=== PATIENT | female | born 1945 | race Caucasian/White ===

== ENCOUNTER → 2017-02-05 | Outpatient (CLI) | payer MEDICARE ==
[~2017-02-05] MED LIST: AMBIEN10 MG PO; ATIVAN0.5 M1 PO; BACTRIM DS TABL1 TA1 PO; CITALOPRAM HBR40 MG PO; COMBIVENT U/D3 M2 INH; DOCUSATE SODIU100 MG PO; DULOXETINE HCL60 M1 PO; DULOXETINE HCL60 MG PO; FLORASTORKIDS250 MG PO; GABAPENTIN300 M2 PO; GLUCOPHAGE500 M1 PO; HUMIBID-LA600 MG PO; HYDROCODON-ACE1 EAC7 PO; HYDROCODONE-A1 UDTA2 PO; HYDROXYZINE HCL25 M1 PO; KLONOPIN0.5 MG PO; LASIX20 MG PO; LEVAQUIN750 MG PO; LISINOPRIL-HCTZ1 T14 PO; MEROPENEM500 M1 IV; MIRALAX17 GM PO; NEURONTIN300 MG PO; PERFOROMIS20 MCG/2 M INH; PROTONIX PO; PULMICORT0.5 MG/21 INH; QUETIAPINE FUMA25 MG; QUETIAPINE FUMA25 MG PO; TOPROL XL PO; TYLENOL #4 PO; VANCOMYCIN1.5 GM/251 IV; VASCULERA630 MG PO; XARELTO10 MG PO; ZESTRIL10 M1 PO; [UNRECOGNIZED DRUG - OTHER] IU
--- NOTE | ~2017-02-05 | CT55 ---
[facility] A Service of [facility] RADIOLOGY TEXT RESULTS PATIENT: SERGIO VILLARREAL LOCATION: [facility] : 41 UNIT #: [id number] AGE: [address]: Davy Rooney MD SEX: F ORDER DR: [id number] [facility] [address] [place], [place] [address] [id number] O MR#: [id number] Acc #: [id number] NAME: SERGIO VILLARREAL : 1945 SEX: F STUDY DATE/TIME: 02/05/2017 10:25 UNIT: [facility] ROOM: STUDY DESCRIPTION: CT Chest W Con Attending Physician: Davy Rooney M.D. Referring Physician: Davy Rooney M.D. Ordering Physician: Davy Rooney M.D. Primary Care Physician: Will Sousa D.O. MEDICAL IMAGING REPORT This report is preliminary unless electronic signature is present EXAM CT chest with contrast, 02/05/2017, 10:25 hours HISTORY 71-year-old diagnosed with lung carcinoma, status post left lung surgery September 26, 2016 with interval chemo and radiation therapy. Observation for suspected malignant neoplasm. Restaging. COMPARISON CT chest 10/19/[address] images were obtained from the lung apices through the adrenal glands. Sagittal and coronal reconstructions were performed. Contrast was Isovue-370, 70 mL IV. Total exam DLP is 8619 mGy/cm. This CT exam was performed with one or more of the following radiation dose reduction techniques: automatic exposure control, adjustment of mA and/or kV according to patient size, and iterative reconstruction. FINDINGS Images through the thoracic inlet demonstrate no thyroid mass or supraclavicular adenopathy. Images through the chest demonstrate normal aorta, pulmonary arteries, cardiac chambers, pericardium and esophagus. There is no definite pathologic mediastinal, hilar or axillary adenopathy. The patient has underlying emphysematous change. There is a spiculated residual mass density in the left upper lung irregular marginated somewhat difficult to measure measuring up to 3.4 x 2.3 cm. I believe this is present and partially obscured by pleural fluid previously. Previous STS. [facility] A Service of [facility] RADIOLOGY TEXT RESULTS PATIENT: SERGIO VILLARREAL LOCATION: [facility] : 41 UNIT #: [id number] AGE: [address]: Davy Rooney MD SEX: F ORDER DR: measured approximately 3.9 x 3.8 cm suggesting improvement. The previous 3 left chest tubes have been removed. There is no definite residual left pleural fluid. There is residual moderate irregular pleural thickening in the lateral upper to mid hemithorax. There is interstitial prominence in the mid and lower lungs bilaterally slightly increased from prior study. This could represent edema, interstitial pneumonitis, less likely, drug reaction. There is no right effusion. Limited views through the upper abdomen demonstrate no definite liver lesion. There is stable mild thickening of the left and right adrenal glands. There is no definite adenopathy. IMPRESSION Interval improvement from 10/19/2016. 3 left chest tubes have been removed. There is a residual spiculated irregularly marginated soft tissue mass in the left mid lung now measuring 3.4 x 2.3 cm previously measuring up to 3.9 x 3.8 cm. There is no residual left pleural fluid although there is some pleural thickening which is irregular in the lateral upper and mid hemithorax adjacent to the level of the measured mass. Stable emphysematous changes with increase in interstitial changes in the upper, mid and lower lungs bilaterally. These interstitial changes could indicate underlying interstitial edema, interstitial pneumonitis or less likely, drug reaction. There is no pathologic adenopathy. No new pulmonary parenchymal densities. No new bone lesions. Limited views of the liver and adrenal glands suggest no metastasis. Dictated by... Luisa Ortiz M.D. THIS IS AN ELECTRONICALLY VERIFIED REPORT Luisa Ortiz M.D. at 02/05/2017 2:30 PM Emanuel TD: 02/05/2017 11:46 JOB #: [id number] MEDICAL IMAGING REPORT Page 1 of 1 COPY
[2017-02-05 10:46] LABS: POC - CREATININE 0.92 mg/dL (0.44-1.03); POC - GFR >60.0 mL/min (>60)
== END | disposition home or self-care (01) ==
LOC: CCAT 09:02
PROVIDERS: Internal Medicine Medical Oncology
DX: C34.92 Malignant neoplasm of unspecified part of left bronchus or lung (principal); R91.8 Other nonspecific abnormal finding of lung field; J92.9 Pleural plaque without asbestos
CPT/HCPCS: 71260; 82565; Q9967